=== PATIENT | female | born 1965 | race American Indian/Alaskan Native ===

== ENCOUNTER 2020-08-28 07:29 | Emergency (ER) | payer OTHER ==
[2020-08-28 07:49] VITALS: BP 154/94
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
== END 2020-08-28 08:54 | disposition home or self-care (01) ==
LOC: ED 07:29
DX: S39.012A Strain of muscle, fascia and tendon of lower back, initial encounter (principal); S76.011A Strain of muscle, fascia and tendon of right hip, initial encounter; I10 Essential (primary) hypertension; Z90.710 Acquired absence of both cervix and uterus; Z79.899 Other long term (current) drug therapy; V47.5XXA Car driver injured in collision with fixed or stationary object in traffic accident, initial encounter; Y93.89 Activity, other specified; Y92.488 Other paved roadways as the place of occurrence of the external cause; Y99.8 Other external cause status
CPT/HCPCS: 99282

== ENCOUNTER 2021-10-28 01:34 | Emergency (ER) | payer OTHER ==
--- NOTE | 2021-10-28 02:19 | Emergency Department Report ---
ED General Adult HPI - General Chief complaint: Nosebleed Stated complaint: NOSE BLEEDING Time Seen by Provider: 10/28/21 02:12 Source: patient, RN notes reviewed, old records reviewed Mode of arrival: Ambulatory Limitations: No Limitations - History of Present Illness Initial comments: The patient is a 56-year-old female who presents to the ER today with a complaint of resolved right-sided nasal bleeding. She reports this happens frequently during change of weather, and with allergy season. She endorses nasal stuffiness. She denies physical pain. She is also requesting refill on her Norvasc, and her losartan medications. She denies systemic anticoagulation. Her nasal bleeding is now resolved. -: hour(s) Consistency: now resolved Improves with: other (Application of pressure) Worsens with: none - Related Data Previous Rx's Medication Instructions Recorded Last Taken Type Ketorolac [Toradol] 10 mg PO Q6H PRN #20 tablet 08/28/20 Unknown Rx Cetirizine HCl [Zyrtec 10mg tab] 10 mg PO QDAY #30 tab 10/28/21 Unknown Rx Fluticasone [Flonase] 1 spray NS QDAY #1 bottle 10/28/21 Unknown Rx Losartan/Hydrochlorothiazide 1 each PO QDAY #30 tab 10/28/21 Unknown Rx [Losartan-Hctz 100-25 mg Tab] amLODIPine 10 mg PO DAILY #30 tab 10/28/21 Unknown Rx Allergies Allergy/AdvReac Type Severity Reaction Status Date / Time No Known Allergies Allergy Unverified 08/28/20 07:46 ED Review of Systems ROS: Stated complaint: NOSE BLEEDING Other details as noted in HPI Constitutional: denies: fever ENT: as per HPI, epistaxis, congestion. denies: throat pain Respiratory: denies: cough Cardiovascular: denies: chest pain Gastrointestinal: denies: abdominal pain, hematemesis, melena, hematochezia Psychiatric: anxiety Hematological/Lymphatic: denies: easy bleeding ED Past Medical Hx - Past Medical History Hx Hypertension: Yes Additional medical history: high cholestrol - Surgical History Additional Surgical History: partial hysterectomy - Medications Home Medications: Home Medications Medication Instructions Recorded Confirmed Last Taken Type Ketorolac [Toradol] 10 mg PO Q6H PRN #20 tablet 08/28/20 Unknown Rx Cetirizine HCl [Zyrtec 10mg tab] 10 mg PO QDAY #30 tab 10/28/21 Unknown Rx Fluticasone [Flonase] 1 spray NS QDAY #1 bottle 10/28/21 Unknown Rx Losartan/Hydrochlorothiazide 1 each PO QDAY #30 tab 10/28/21 Unknown Rx [Losartan-Hctz 100-25 mg Tab] amLODIPine 10 mg PO DAILY #30 tab 10/28/21 Unknown Rx ED Physical Exam - General Limitations: No Limitations General appearance: alert, in no apparent distress - Head Head exam: Present: atraumatic, normocephalic - Eye Eye exam: Present: normal appearance, EOMI. Absent: nystagmus - ENT ENT exam: Present: normal exam, normal orophraynx, mucous membranes moist, TM's normal bilaterally, normal external ear exam, other (There is no nasal septal hematoma. There is no hemotympanum. The mastoids are nontender. There is dried blood noted in the nostrils. There is no active nasal bleeding) - Neck Neck exam: Present: normal inspection, full ROM. Absent: tenderness, meningismus - Respiratory Respiratory exam: Present: normal lung sounds bilaterally. Absent: respiratory distress, wheezes, rales, rhonchi, stridor, decreased breath sounds - Cardiovascular Cardiovascular Exam: Present: regular rate, normal rhythm, normal heart sounds. Absent: bradycardia, tachycardia, irregular rhythm, systolic murmur, diastolic murmur, rubs, gallop - GI/Abdominal GI/Abdominal exam: Present: soft. Absent: distended, tenderness, guarding, rebound, rigid, pulsatile mass - Extremities Exam Extremities exam: Present: normal inspection, full ROM, other (2+ pulses noted in the bilateral upper extremities. There is no long bony tenderness. The muscular compartments are soft. The pelvis is stable). Absent: pedal edema, calf tenderness - Back Exam Back exam: Present: normal inspection. Absent: tenderness, CVA tenderness (R), CVA tenderness (L), paraspinal tenderness, vertebral tenderness - Neurological Exam Neurological exam: Present: alert, oriented X3, normal gait, other (No facial droop. Tongue midline. Extraocular movements intact bilaterally. Facial sensation intact to light touch in V1, V2, V3 distribution bilaterally. 5 and a 5 strength in 4 extremities. Sensation intact to light touch in 4 extremities.). Absent: motor sensory deficit - Psychiatric Psychiatric exam: Present: normal affect, normal mood - Skin Skin exam: Present: warm, dry, intact, normal color. Absent: rash ED Course Vital Signs 10/28/21 01:46 Temperature 98.3 F Pulse Rate 94 H Respiratory 16 Rate Blood Pressure 182/113 O2 Sat by Pulse 97 Oximetry ED Medical Decision Making - Lab Data Vital Signs 10/28/21 01:46 Temperature 98.3 F Pulse Rate 94 H Respiratory 16 Rate Blood Pressure 182/113 O2 Sat by Pulse 97 Oximetry - Medical Decision Making Differential diagnosis, including but not limited to: Hypertension, medication refill, epistaxis resolved, seasonal allergies Assessment and plan: 56-year-old female, who is afebrile, with reassuring vital signs, with exception of chronic hypertension, please reference the [employer] emergency physicians clinical policy on asymptomatic hypertension, presenting to the ER today with a primary complaint of nasal bleeding which is now resolved. Patient educated as to the natural history of nasal bleeding. Patient given tongue depressor device, and advised that if nasal bleeding reoccurs, apply gentle pressure with fingertips, and tongue depressor device. Start Flonase, Zyrtec, refill antihypertensive therapy. Return precautions reviewed. All questions answered. Patient denies trauma, nasal picking, and cocaine use. Critical care attestation.: If time is entered above; I have spent that time in minutes in the direct care of this critically ill patient, excluding procedure time. ED Disposition Clinical Impression: Elevated blood pressure reading, Medication refill, History of epistaxis Disposition: HOME / SELF CARE / HOMELESS Is pt being admited?: No Does the pt Need Aspirin: No Condition: Good Instructions: Hypertension, Adult, Nosebleed, Adult Additional Instructions: Please continue current outpatient medications. If nasal bleeding reoccurs, please apply gentle pressure to the nose, using the tongue depressor device, and hold firm pressure with fingertips as discussed and taught, for approximately 15 to 20 minutes. This typically resolves most cases of nasal bleeding. If nasal bleeding reoccurs in spite of these interventions, please present to the emergency room right away. Please take the prescribed medications as needed and directed. Please follow-up with your primary care doctor within the next month. Please return to the emergency room right away with new pain, worsened pain, migration of pain, projectile vomiting, change in mental status, confusion, inability tolerate liquid feeds, new, worsened or different symptoms not present on the initial emergency room evaluation Prescriptions: amLODIPine 10 mg PO DAILY #30 tab Fluticasone [Flonase] 1 spray NS QDAY #1 bottle Losartan/Hydrochlorothiazide [Losartan-Hctz 100-25 mg Tab] 1 each PO QDAY #30 tab Cetirizine HCl [Zyrtec 10mg tab] 10 mg PO QDAY #30 tab Referrals: [facility] [Provider Group] - 3-5 Days
[2021-10-28 02:40] VITALS: BP 177/112
== END 2021-10-28 05:59 | disposition home or self-care (01) ==
LOC: ED 01:34
DX: I10 Essential (primary) hypertension (principal); Z76.0 Encounter for issue of repeat prescription; R04.0 Epistaxis
CPT/HCPCS: 99282